=== PATIENT | female | born 1940 | race Hispanic/Latino ===

== ENCOUNTER 2021-01-23 10:52 | Outpatient (RCR) | payer MEDICARE ==
[~2021-01-23 10:52] MED LIST: ALENDRONATE SOD70 MG PO; BUSPIRONE HCL5 MG PO; CALCIUM ACETAT667 M1 PO; FISH OIL 1,0001 EAC2 PO; GEMFIBROZIL600 MG PO; LEVOTHYROXINE25 MCG PO; LISINOPRIL2.5 MG PO; VITAMIN B-121000 MCG PO; VITAMIN C1000 M2 PEG
== END 2021-01-25 ==
LOC: PT 10:52
PROVIDERS: ATTEND Specialist
DX: M19.072 Primary osteoarthritis, left ankle and foot (principal); S93.622D Sprain of tarsometatarsal ligament of left foot, subsequent encounter; S93.692D Other sprain of left foot, subsequent encounter

== ENCOUNTER 2021-02-20 10:00 | Outpatient (RCR) | payer MEDICARE | END 2021-02-24 | LOC: PT 10:00 | PROVIDERS: ATTEND Specialist | DX: M19.072 Primary osteoarthritis, left ankle and foot (principal); S93.622D Sprain of tarsometatarsal ligament of left foot, subsequent encounter; S93.692D Other sprain of left foot, subsequent encounter | CPT/HCPCS: 97139 ==

== ENCOUNTER 2022-01-23 20:50 | Emergency (ER) | payer MEDICARE, OTHER ==
[~2022-01-23] VITALS: Ht 160 cm; Wt 82.6 kg
[2022-01-23] MEDS ORDERED: LIDOCAINE HCL 1% LOCAL INJ 20 ML VIAL INJ ONE (21:00)
[2022-01-23] MEDS ORDERED: TRAMADOL HCL 50 MG TAB PO ONE (22:45)
[2022-01-23] MEDS ORDERED: CLEOCIN HCL300 MG PO (22:45)
[2022-01-23] MEDS ORDERED: ULTRAM 50MG50 MG PO (22:45)
[2022-01-23] MEDS ORDERED: CLINDAMYCIN HCL 150 MG CAP PO ONE (22:45)
[2022-01-23] MEDS ORDERED: HYDROCODONE/APAP 7.5MG-325MG 1 EA TAB PO PRN (23:00)
== END 2022-01-24 01:02 | disposition home or self-care (01) ==
LOC: ER 21:05
DX: S82.091A Other fracture of right patella, initial encounter for closed fracture (principal); S01.511A Laceration without foreign body of lip, initial encounter; W01.0XXA Fall on same level from slipping, tripping and stumbling without subsequent striking against object, initial encounter; Y93.01 Activity, walking, marching and hiking; Y92.008 Other place in unspecified non-institutional (private) residence as the place of occurrence of the external cause; K04.7 Periapical abscess without sinus
CPT/HCPCS: 29530; 70450; 70486; 72125; 73562; 99283; J2001

== ENCOUNTER 2023-03-14 19:45 | Emergency (ER) | payer MEDICARE ==
[~2023-03-14] VITALS: Ht 160 cm; Wt 82.6 kg
[~2023-03-14 19:45] MED LIST changes: +CLEOCIN HCL300 MG PO; +ULTRAM 50MG50 MG PO
[2023-03-14] MEDS ORDERED: ACETAMINOPHEN 1000 MG/100 ML IV STA (19:50)
[2023-03-14] MEDS ORDERED: SODIUM CHLORIDE 0.9% 1000ML 1,000 ML IV ONE (20:00)
[2023-03-14 20:38] LABS: BASOPHILS % 0.3 % (0.0-1.0); EOSINOPHILS % 0.1 % (0.0-6.0); HEMATOCRIT 36.2 % (34.2-44.1); HEMOGLOBIN 11.6 g/dL (12.0-16.0); LYMPHOCYTES # (AUTO) 1.1 (1.0-3.2); LYMPHOCYTES % 12.4 % (18.0-39.1); MEAN CORPUSCULAR HEMOGLOBIN 29.9 pg (28-32); MEAN CORPUSCULAR VOLUME 93.3 fL (81-99); MONOCYTES % 11.3 % (4.4-11.3); NEUTROPHILS # (AUTO) 6.9 (2.1-6.9); NEUTROPHILS % 75.6 % (38.7-80.0); PLATELET COUNT 211 x10e3/uL (140-360); RED BLOOD COUNT 3.88 x10e6/uL (3.6-5.1); RED CELL DISTRIBUTION WIDTH 13.8 % (11.7-14.4)
[2023-03-14 20:55] LABS: ALBUMIN 3.2 g/dL (3.5-5.0); ALBUMIN/GLOBULIN RATIO 0.9 (0.8-2.0); ANION GAP 14.8 mmol/L (8-16); CREATININE, SERUM 0.99 mg/dL (0.57-1.11); POTASSIUM 3.8 mmol/L (3.5-5.1)
[2023-03-14 21:01] LABS: CREATINE KINASE MB 5.8 ng/mL (0-5.0)
[2023-03-14 21:32] LABS: CLARITY,URINE SL CLOUDY (CLEAR); COLOR,URINE YELLOW (YELLOW); LEUKOCYTE ESTERASE ,URINE SMALL (NEGATIVE); NITRITE,URINE POSITIVE (NEGATIVE); PROTEIN,URINE DIPSTICK NEGATIVE (NEGATIVE)
[2023-03-14 21:33] LABS: KETONES,URINE NEGATIVE (NEGATIVE); URINE UROBILINOGEN 0.2 mg/dL (0.2 - 1)
[2023-03-14 21:43] LABS: BACTERIA,URINE MANY /HPF; EPITHELIAL CELLS,URINE FEW /LPF
[2023-03-14] MEDS ORDERED: CEFDINIR300 MG PO (22:12)
[2023-03-14 22:14] VITALS: O2SAT 97
== END 2023-03-14 22:25 | disposition home or self-care (01) ==
LOC: ER 19:50
DX: R50.9 Fever, unspecified (principal); U07.1 COVID-19; N39.0 Urinary tract infection, site not specified; I10 Essential (primary) hypertension; F03.90 Unspecified dementia, unspecified severity, without behavioral disturbance, psychotic disturbance, mood disturbance, and anxiety
CPT/HCPCS: 36415; 71045; 80053; 81001; 82550; 82553; 83605; 84484; 85025; 87040; 87086; 87186; 93005; 99284; J0131; J0696; J7030; U0002